=== PATIENT | female | born 1995 | race Caucasian/White ===

== ENCOUNTER → 2019-07-20 12:07 | Outpatient (CLI) | payer OTHER, MEDICAID, SELFPAY ==
--- NOTE | 2019-07-20 12:08 | DI.US.S_ITS ---
PROCEDURE: US OB >= 14 WEEKS FETUS INDICATIONS: 20 WEEK ANATOMY OUTSIDE/PRIOR DATING DATA: Last menstrual period (LMP): Unknown. LMP-based estimated date of delivery (ANGELIQUE): Unknown. First dating scan (date and location): 05/10/19. Estimated date of delivery (ANGELIQUE) from first dating scan: 12/02/18. TECHNIQUE: Real-time scanning was performed of the fetus, with image documentation and biometric measurements. Endovaginal scanning: Not performed COMPARISON: None. FINDINGS: General: A single living intrauterine gestation is present. Presentation: Vertex Placenta: Placental position is posterior, without previa. Amniotic fluid index: 14.3 cm, normal range is 5-24 cm. heart rate: 153 beats per minute. Maternal cervical canal: 3.3 cm long. Normal lower limit is 2.5 cm. biometrics: Biparietal diameter: 4.9 cm, 20 weeks, 6 days Head circumference: 18.1 cm, 20 weeks, 3 days Abdominal circumference: 14.6 cm, 19 weeks, 6 days Femur length: 3.4 cm, 20 weeks, 5 days Estimated gestational age from initial scan: 20 weeks 4 days. Composite gestational age from present scan: 20 weeks 3 days Estimated weight and percentile: 343 g, 29% Measurement variability for biometric dating: +/- 7 days from 14 weeks to 15 weeks 6 days gestation, +/- 10 days from 16 weeks to 21 weeks 6 days gestation, +/- 2 weeks from 22 weeks to 27 weeks 6 days gestation, +/- 3 weeks for 28 weeks gestation or later. weight reference: 4500 g or EFW >90/95% is considered macrosomia or large for gestational age. EFW <10% is small for gestational age. EFW 5% or less is considered intra-uterine growth restriction. Anatomic survey: Neuro: Ventricles are non-dilated at less than 10 mm. Cisterna magna is normal at 3-11 mm. Cerebellum is normal in size and morphology. Nuchal skin fold: Normal at less than 6 mm between 14-21 weeks gestational age. Face: Not well-seen due to position. Spine: No evidence for spina bifida. Heart: 4-chambered heart is present, with normal ventricular outflow tracts. Diaphragm: Diaphragm is intact. Stomach: Left-sided stomach is present. Kidneys: No hydronephrosis. Normal is less than 5 mm in 2nd trimester, less than 7 mm in 3rd trimester. Cord: 3-vessel cord has orthotopic insertion. Bladder: Normal in size. Extremities: All 4 extremities identified. IMPRESSION: 1. Single live intrauterine . Normal growth. Normal amount of amniotic fluid. 2. nose and lips are not well seen due to lie. Rest of anatomy is normal. Dictated by: Arvind Amato M.D. on 07/20/2019 at 15:19 Approved by: Arvind Amtao M.D. on 07/20/2019 at 15:25
== END ==
PROVIDERS: PCP Specialist; Visit Provider Specialist
DX: Z34.82 Encounter for supervision of other normal pregnancy, second trimester (principal); Z36.89 Encounter for other specified antenatal screening; Z3A.20 20 weeks gestation of pregnancy
CPT/HCPCS: 76811

== ENCOUNTER → 2019-07-30 10:28 | Outpatient (CLI) | payer OTHER, MEDICAID, SELFPAY ==
[2019-07-30 11:35] LABS: Add Manual Diff / Slide Review NO; Basophils Absolute Auto 0 /uL (0-100); Basophils Percent Auto 0.3 % (0-2); Eosinophils Absolute Auto 100 /uL (0-450); Eosinophils Percent Auto 1.6 % (2-4); Hematocrit 37.4 % (36-46); Hemoglobin 12.8 g/dL (12.0-16.0); Lymphocytes Absolute Auto 1200 /uL (1100-4500); Mean Corpuscular HGB Conc 34.3 % (30-36); Mean Corpuscular Hemoglobin 32.4 PG (26-34); Mean Corpuscular Volume 94.5 fL (80-100); Monocytes Absolute Auto 300 /uL (0-900); Monocytes Percent Auto 4.9 % (3-14); Neutrophils Absolute Auto 4800 /uL (1500-7000); Neutrophils Percent Auto 74.2 % (50-75); Platelet Count 272 X10^3/uL (150-400); Red Blood Cell Count 3.96 X10^6/uL (4.0-5.2); Red Cell Distribution Width 13.8 % (11.6-14.8); White Blood Cell Count 6.5 X10^3/uL (4.5-11.0)
[2019-07-30 11:39] LABS: Appearance Urine UA CLEAR; Bilirubin Urine UA NEGATIVE (NEGATIVE); Color Urine UA YELLOW; Glucose Urine UA NEGATIVE (Negative); Ketones Urine UA NEGATIVE (NEGATIVE); Leukocyte Esterase Urine UA NEGATIVE (NEGATIVE); Nitrite Urine UA NEGATIVE (Negative); Occult Blood Urine UA NEGATIVE (Negative); Protein Urine UA NEGATIVE (Negative); Specific Gravity Urine UA 1.015 (1.000-1.035); Urobilinogen Urine UA 0.2 E.U./dL (0.2)
[2019-07-30 12:44] LABS: Hepatitis B Surface Antigen NEGATIVE s/c (NEGATIVE); Rubella Antibody IgG 30.9 IU/mL (>15)
[2019-07-30 12:59] LABS: HIV 1 & 2 Ab/Ag 4th Gen Combo NEGATIVE (NEGATIVE); Hep C Virus Ab w/Reflex Quant NEGATIVE s/c (NEGATIVE)
[2019-07-31 17:44] LABS: RPR Screen Nonreactive (Nonreactive)
== END ==
PROVIDERS: PCP Specialist; Visit Provider Specialist
DX: Z34.82 Encounter for supervision of other normal pregnancy, second trimester (principal); Z3A.14 14 weeks gestation of pregnancy
CPT/HCPCS: 36415; 80055; 81003; 86787; 86803; 86850; 86900; 86901; 87389

== ENCOUNTER → 2019-11-14 10:15 | Outpatient (CLI) | payer OTHER, MEDICAID, SELFPAY ==
[2019-11-19 12:23] LABS: Strep Grp B PCR NEG for Grp B Strep
== END ==
PROVIDERS: PCP Specialist; Visit Provider Specialist
DX: Z34.03 Encounter for supervision of normal first pregnancy, third trimester (principal)
CPT/HCPCS: 87491; 87591; 87653

== ENCOUNTER 2019-11-23 10:34 | Outpatient (CLI) | payer OTHER, MEDICAID, SELFPAY ==
--- NOTE | 2019-11-23 11:09 | PM.OBTRLD ---
Visit Information Visit Information Date of evaluation: 11/23/19 Primary OB Provider: Sherri Huerta Reason for Evaluation: Yes rupture of membranes Vital Signs Vital Signs: Blood pressure 118/74, pulse 78, temperature 35.9? PFSH Medical History (Updated 11/23/19 @ 11:10 by Sherri Huerta MD) Closed arm fracture (Acute) Family History (Updated 04/30/19 @ 15:10 by Shandra Thomas RN) Mother Hypertension Social History marital status: unmarried,single Smoking Status: Never smoker Evaluation Evaluation Baseline heart rate: 145 Variability: Moderate (11-25) monitor accelerations: Present monitor decelerations: Variable Contraction Frequency (minutes): 0 Category of Tracing: I Non-invasive Membranes Rupture Test: negative Diagnosis, Plan/Disposition Final Diagnosis (1) Vaginal discharge during in third trimester: Current Visit: Yes Status: Acute Plan/Disposition Plan: Patient was concerned perhaps leaking amniotic fluid. AmniSure was negative. Patient reassured and will keep her normal OB appointment OB Disposition: home
== END 2019-11-23 11:15 | disposition home or self-care (01) ==
LOC: LABOR 11:22 → OB 11-26 15:08
PROVIDERS: PCP Specialist; Referring Provider Specialist; Visit Provider Specialist
DX: O26.893 Other specified pregnancy related conditions, third trimester (principal); N89.8 Other specified noninflammatory disorders of vagina; Z3A.37 37 weeks gestation of pregnancy
CPT/HCPCS: 59025; 84112; G0378; G0379

== ENCOUNTER 2019-12-12 15:05 | Outpatient (CLI) | payer OTHER, MEDICAID, SELFPAY ==
--- NOTE | 2019-12-12 15:38 | PM.OBTRLD ---
Visit Information Visit Information Date of evaluation: 12/12/19 Primary OB Provider: Sherri Huerta Reason for Evaluation: Yes non-stress test non-stress test reason: other (Postdates) [facility] [place] Medical History (Updated 12/12/19 @ 14:53 by Sherri Huerta MD) Closed arm fracture (Acute) Family History (Updated 04/30/19 @ 15:10 by Shandra Thomas RN) Mother Hypertension Social History marital status: unmarried,single Smoking Status: Never smoker Evaluation Evaluation Baseline heart rate: 140 Variability: Moderate (11-25) monitor accelerations: Present monitor decelerations: Absent Contraction Frequency (minutes): 0 Category of Tracing: I Diagnosis, Plan/Disposition Final Diagnosis (1) Postmaturity , 40-42 weeks gestation: Status: Acute Plan/Disposition Plan: Reactive nonstress test follow-up in 5 days OB Disposition: home
== END 2019-12-12 15:46 | disposition home or self-care (01) ==
LOC: LABOR 15:08 → OB 12-18 07:37
PROVIDERS: PCP Specialist; Referring Provider Specialist; Visit Provider Specialist
DX: O48.0 Post-term pregnancy (principal); Z3A.40 40 weeks gestation of pregnancy
CPT/HCPCS: 59025; G0378; G0379

== ENCOUNTER 2019-12-15 06:38 | Inpatient (IN) | payer OTHER, MEDICAID, SELFPAY ==
--- NOTE | 2019-12-15 07:36 | P.HPOB_ITS ---
OB HPI Date/Time Date of admission: 12/15/19 Date Patient Seen: 12/15/19 Time Patient Seen: 07:36 History of Present Condition Chief complaint: evaluation of labor : 4 Para: 2 Estimated Date of Delivery: 12/08/19 Estimated Gestational Age (weeks): 41 Narrative: Yamile Barrios is a 24 year old female admitted in active labor History of Present care: good care, initiated at week # (8), number of visits (15) and pounds weight gain (28) Dating criteria: LMP confirmed by 1st trimester US Ultrasounds: normal mid trimester US Obstetrical complications: none Medical complications: none Preadmission Labs Blood type: A (+) positive -: Antibody screen: negative, GBS status: negative, HBsAG: negative, HIV: negative and RPR/VDLR: negative -: Rubella: immune and Varicella: immune HCAB: negative 1 hr GTT: 89 Evaluation Evaluation Variability: Moderate (11-25) monitor accelerations: Present monitor decelerations: Absent Contraction Frequency (minutes): 6 Uterine Contraction Intensity: Mild Category of Tracing: I Cervical dilation (cm): 6 Cervical effacement (%): 90 station: -[facility] Medical History (Updated 12/12/19 @ 14:53 by Sherri Huerta MD) Closed arm fracture (Acute) Family History (Updated 04/30/19 @ 15:10 by Shandra Thomas RN) Mother Hypertension Social History marital status: unmarried,single Smoking Status: Never smoker Meds Home Medications and Allergies Home Medications Medication Instructions Recorded Confirmed Type prenat.vits,monie,tcf-hbnk-qdjkn 1 tab PO DAILY 04/30/19 12/05/19 History Allergies Allergy/AdvReac Type Severity Reaction Status Date / Time latex [LATEX] Allergy Intermediate Verified 12/05/19 08:23 Review of Systems Review of Systems Narrative: Patient denies headaches, scotomata, epigastric pain. No leakage of fluid. She began noticing contractions approximately 3-1/2 hours ago. Good movement. ROS: Yes All systems reviewed with the patient and are negative except as otherwise documented Exam Narrative Exam Narrative: HEENT exam within normal limits. Lungs are clear to auscultation percussion. Heart is regular rate rhythm no S3-S4 or murmurs. Abdomen is gravid. Fetus is vertex. Extremities without edema nontender. Assessment and Plan Assessment and Plan Assessment and Plan narrative: 41 week gestation in active labor. Anticipate vaginal delivery
[2019-12-15 08:04] LABS: Add Manual Diff / Slide Review NO; Basophils Absolute Auto 0 /uL (0-100); Basophils Percent Auto 0.4 % (0-2); Eosinophils Absolute Auto 100 /uL (0-450); Eosinophils Percent Auto 0.8 % (2-4); Hematocrit 39.7 % (36-46); Hemoglobin 13.7 g/dL (12.0-16.0); Lymphocytes Absolute Auto 1500 /uL (1100-4500); Lymphocytes Percent Auto 19.8 % (25-40); Mean Corpuscular HGB Conc 34.5 % (30-36); Mean Corpuscular Hemoglobin 33.6 PG (26-34); Mean Corpuscular Volume 97.6 fL (80-100); Monocytes Absolute Auto 400 /uL (0-900); Monocytes Percent Auto 5.7 % (3-14); Neutrophils Absolute Auto 5600 /uL (1500-7000); Neutrophils Percent Auto 73.3 % (50-75); Platelet Count 197 X10^3/uL (150-400); Red Blood Cell Count 4.06 X10^6/uL (4.0-5.2); Red Cell Distribution Width 13.7 % (11.6-14.8); White Blood Cell Count 7.7 X10^3/uL (4.5-11.0)
[2019-12-15 08:46] VITALS: BP 144/78
[2019-12-15 08:58] LABS: COVID19 -Nasal RAPID Negative (Negative)
[2019-12-15] MEDS: OXYTOCIN 10 UNIT/ML VIAL IM (09:15)
--- NOTE | 2019-12-15 09:32 | P.PCNOB_ITS ---
Labor & Delivery Delivery date: 12/15/19 Intrapartal events: None Induction method: none Delivery monitor: external FHT and external uterine Route of delivery: L&D Laceration Description: Perineal - 2nd Degree Delivery repair: chromic (3 0) Estimated blood loss (mL): 300 Anesthesia type: Local (10 cc of 1% lidocaine) Narrative: Patient arrived on Labor and delivery in active labor. heart tones category 1 throughout labor. Patient had a spontaneous vaginal delivery over an intact perineum. The male infant was placed on maternal abdomen. After the cord stopped pulsating the cord was clamped, cut, and cord bloods obtained. The placenta delivered spontaneously, intact, with 3 vessels. There were no cer vical or vaginal tears. A second-degree perineal tear was repaired with 3 0 chromic suture after injecting with approximately 10 cc of 1% lidocaine. Both infant mother doing well. [place] Baby 1: Infant gender: Male Presentation: vertex position: Right Occiput Anterior Placenta delivery description: Spontaneous cord vessel description: 3 Vessels score (1 min): 8 score (5 min): 9 Plan for aftercare: Routine post vaginal delivery care
--- NOTE | 2019-12-15 14:36 | PM.OBDS.1 ---
Discharge Providers Provider Date of admission: 12/15/19 06:38 Discharge Date: 12/15/19 Primary care physician: Sherri Huerta MD Consults: 12/16/19 09:30 Consult to Prepress Technician Routine Comment: Discharge provider: Sherir Huerta MD Summary Hospital Course Date Patient Seen: 12/15/19 Time Patient Seen: 14:37 Procedures: Spontaneous vaginal delivery, repair of second-degree perineal tear Hospital Course: Patient arrived on Labor and delivery in active labor. She progressed quickly and had a spontaneous vaginal delivery a viable male infant weighing 9 lb 5 oz. She had repair of a second-degree perineal tear. Although encouraged to stay longer patient requested early discharge. Peripartum Data Infant Delivery Method: Natural Vaginal Laceration description: Perineal - 2nd Degree Procedures: Spontaneous vaginal delivery, repair of second-degree perineal tear complications: none [place] 1: Gender: Male Disposition of : home Discharge Diagnosis (1) Vaginal delivery: Status: Acute Status at Discharge Cognitive/behavioral status at discharge: oriented Functional status at discharge: independent ambulation Overall status at discharge: patient is progressing back to baseline Time Spent with Patient Time attestation: Total time spent providing and/or coordinating discharge services: Time spent: Less than 30 minutes Objective Labs Result Diagrams: 12/15/19 07:30 Labs: Laboratory Results - last 24 hr 12/15/19 12/15/19 12/15/19 07:30 07:30 07:45 WBC 7.7 RBC 4.06 Hgb 13.7 Hct 39.7 MCV 97.6 MCH 33.6 MCHC 34.5 RDW 13.7 Plt Count 197 Neut % (Auto) 73.3 Lymph % (Auto) 19.8 L [place] % (Auto) 5.7 Eos % (Auto) 0.8 L Baso % (Auto) 0.4 Neut # (Auto) 5600 Lymph # (Auto) 1500 [place] # (Auto) 400 Eos # (Auto) 100 Baso # (Auto) 0 COVID-19 PCR Negative Blood Type A Positive Antibody Screen Negative Exam Vital Signs (past 8 hours): Blood pressure 117/68, pulse of 88, temperature 97.8? - 12/15/19 08:46 Blood Pressure 144/78 H Narrative Exam Narrative: Abdomen is soft, nontender. Uterus is firm, at U, nontender. Mild lochia. Repair intact. Extremities without edema and nontender. Patient's blood type is A positive, she is rubella immune, she refuses the Tdap Discharge Plan Discharge Plan Patient Disposition: Home Discharge orders & Medications Prescriptions: Continued prenat.vits,monie,art-yjwf-tndzg Tablet 1 tab PO DAILY RF: 0 Follow up/Referrals: Sherri Huerta MD [Primary Care Provider] - 1 Month Diet/Activity/Treatments Diet: Regular Activity: Nothing in vagina for 4 weeks Skin/Wound/Dressing Care Report to your healthcare provider any signs of infection, such as:: chills, fever and increased pain Discharge Data Primary Care Provider: Sherri Huerta Attending Provider: Sherri Huerta Admit Date/Time: 12/15/19 06:38
[2019-12-15 15:32] VITALS: BP 117/68; PULSE 88; RESP 18; TEMP 36.6
== END 2019-12-15 17:00 | disposition home or self-care (01) | DRG 560 ==
PROVIDERS: Admitting Provider Specialist; PCP Specialist; Referring Provider Specialist; Visit Provider Specialist
DX: O70.1 Second degree perineal laceration during delivery (principal); Z3A.41 41 weeks gestation of pregnancy; Z37.0 Single live birth
CPT/HCPCS: 36415; 59050; 59409; 85025; 86850; 86900; 86901; 87635; G0378; G0379; J2590

== ENCOUNTER → 2020-09-11 12:19 | Outpatient (CLI) | payer OTHER, MEDICAID, SELFPAY ==
[2020-09-11 13:14] LABS: Add Manual Diff / Slide Review NO; Basophils Absolute Auto 0 /uL (0-100); Basophils Percent Auto 0.6 % (0-2); Eosinophils Absolute Auto 100 /uL (0-450); Eosinophils Percent Auto 1.7 % (2-4); Hematocrit 40.9 % (36-46); Hemoglobin 13.4 g/dL (12.0-16.0); Lymphocytes Absolute Auto 1500 /uL (1100-4500); Lymphocytes Percent Auto 24.8 % (25-40); Mean Corpuscular HGB Conc 32.8 % (30-36); Mean Corpuscular Hemoglobin 31.3 PG (26-34); Mean Corpuscular Volume 95.3 fL (80-100); Monocytes Absolute Auto 400 /uL (0-900); Monocytes Percent Auto 6.3 % (3-14); Neutrophils Absolute Auto 4100 /uL (1500-7000); Neutrophils Percent Auto 66.6 % (50-75); Platelet Count 325 X10^3/uL (150-400); Red Blood Cell Count 4.29 X10^6/uL (4.0-5.2); Red Cell Distribution Width 13.1 % (11.6-14.8); White Blood Cell Count 6.2 X10^3/uL (4.5-11.0)
[2020-09-11 13:50] LABS: TSH w/ Reflex to FT4 0.69 uIU/mL (0.47-4.68)
== END ==
PROVIDERS: PCP Family Medicine; Referring Provider Family Medicine; Visit Provider Family Medicine
DX: R00.2 Palpitations (principal)
CPT/HCPCS: 36415; 84443; 85025

== ENCOUNTER → 2020-09-23 16:14 | Outpatient (CLI) | payer OTHER, MEDICAID, SELFPAY ==
--- NOTE | 2020-09-23 16:17 | DI.CT.S_ITS ---
PROCEDURE: CT INTERNAL AUDITORY CANALS BI INDICATIONS: Bilateral sinus pain/congestion/ear fullness vertigo COMPARISON: [facility], CT, CT SINUS SCREEN WO CON, 09/23/2020, 16:18. TECHNIQUE: Noncontrast 0.6 mm thick direct axial and coronal sections acquired through each temporal bone separately. FINDINGS: Image quality: Excellent. RIGHT: External auditory canal: Canal has a normal appearance. Middle ear: The middle ear structures, including the ossicles and tympanic membrane, appear normal. No abnormal fluid or soft tissue density. Inner ear: Inner ear is normally formed and appears unremarkable. Facial nerve appears normal throughout is course. Mastoids: Mastoid air cells are clear. LEFT: External auditory canal: Canal has a normal appearance. Middle ear: The middle ear structures, including the ossicles and tympanic membrane, appear normal. No abnormal fluid or soft tissue density. Inner ear: Inner ear is normally formed and appears unremarkable. Facial nerve appears normal throughout its course. Mastoids: Mastoid air cells are clear. MISCELLANEOUS: Visualized surrounding bones appear unremarkable. Visualized intracranial structures, including the cerebellopontine angle cisterns, appear normal. IMPRESSION: Unremarkable exam. Dictated by: Lizzeth Steiner M.D. on 09/23/2020 at 16:43 Approved by: Lizzeth Steiner M.D. on 09/23/2020 at 16:44
--- NOTE | 2020-09-23 16:20 | DI.CT.S_ITS ---
PROCEDURE: CT SINUS SCREEN WO CON INDICATIONS: bilateral sinus pain/congestion/ear fullnesss, vertigo TECHNIQUE: Noncontrast 3.0 mm axial images acquired from the frontal sinuses to the mid-sella, with coronal and sagittal reformats. For radiation dose reduction, the following was used: automated exposure control, adjustment of mA and/or kV according to patient size. COMPARISON: [facility], CT, CT INTERNAL AUDITORY CANALS , 09/23/2020, 16:18. FINDINGS: Image quality: Excellent. Sinuses: There is trace scattered ethmoid and frontal sinus mucosal thickening. No fluid levels. No mucous retention cyst versus polyps. Ostiomeatal Complexes: Ostiomeatal complexes are patent. No Charmaine cells. Miscellaneous: Visualized intra-orbital contents are normal. There is leftward nasal septal deviation. No corey bullosa. There is hypertrophy of the inferior turbinates compared to the middle turbinates of uncertain clinical significance. No paradoxical turbinates. IMPRESSION: 1. Minimal scattered ethmoid and frontal sinus mucosal thickening. Ostiomeatal complexes are patent. Dictated by: Lizzeth Steiner M.D. on 09/23/2020 at 16:45 Approved by: Lizzeth Steiner M.D. on 09/23/2020 at 16:47
== END ==
PROVIDERS: PCP Family Medicine; Referring Provider Family Medicine; Visit Provider Family Medicine
DX: R42 Dizziness and giddiness; H93.13 Tinnitus, bilateral; J01.90 Acute sinusitis, unspecified
CPT/HCPCS: 70480; 70486

== ENCOUNTER → 2022-04-12 11:12 | Outpatient (CLI) | payer OTHER, MEDICAID, SELFPAY ==
--- NOTE | 2022-04-12 11:13 | DI.US.S_ITS ---
PROCEDURE: US OB <= 14 WEEKS FETUS INDICATIONS: DATING OUTSIDE/PRIOR DATING DATA: Last menstrual period (LMP): 02/14/22. LMP-based estimated date of delivery (ANGELIQUE): 11/21/22. First dating scan (date and location): Current study. Estimated date of delivery (ANGELIQUE) from first dating scan: 11/22/22. TECHNIQUE: Real-time scanning was performed of the fetus and maternal pelvic organs, with image documentation. Endovaginal scanning was also performed to better visualize the fetus and maternal ovaries. COMPARISON: [facility], US, US OB <= 14 WEEKS FETUS, 07/09/2019, 10:40. FINDINGS: Embryo: An intrauterine is present including a single pole with an average crown-rump length of 1.59 cm corresponding to a eight week 0 day plus or minus five days gestation. There is detectable cardiac activity in the fetus at a rate of 165 beats per minute. A normal yolk sac is present. Maternal organs: Left ovarian corpus luteum. The right ovary appears normal. Trace free pelvic fluid. The cervix is closed and has a normal appearance. Uterine myometrium is normal. IMPRESSION: 1. Single living intrauterine with a sonographic ANGELIQUE of 02/22/23, in good agreement with the clinical ANGELIQUE. 2. Left ovarian corpus luteum. We strive to produce accurate, complete, and clear reports of imaging services. To assist us in improving patient care, this report was composed using standard report templates and voice recognition software. Therefore, it may contain abnormal punctuation, insertions and/or omissions. Occasional wrong-word or sound-alike substitutions may occur. Though we review the report and make efforts to correct it, we do recommend that the report be read carefully in proper context to recognize any text inaccuracies. Dictated by: Ana Laura Cano M.D. on 04/12/2022 at 16:15 Approved by: Ana Laura Cano M.D. on 04/12/2022 at 16:18
== END ==
PROVIDERS: PCP Family Medicine; Referring Provider Obstetrics & Gynecology; Visit Provider Obstetrics & Gynecology
DX: O34.81 Maternal care for other abnormalities of pelvic organs, first trimester (principal); N83.12 Corpus luteum cyst of left ovary; Z3A.08 8 weeks gestation of pregnancy
CPT/HCPCS: 76801; 76817

== ENCOUNTER → 2022-05-10 11:05 | Outpatient (CLI) | payer OTHER, MEDICAID, SELFPAY ==
[2022-05-10 16:59] LABS: Urine N gonorrhoeae NOT DETECTED
[2022-05-10 17:51] LABS: Urine Chlamydia NOT DETECTED
== END ==
PROVIDERS: PCP Family Medicine; Visit Provider Obstetrics & Gynecology
DX: Z34.81 Encounter for supervision of other normal pregnancy, first trimester (principal); Z11.3 Encounter for screening for infections with a predominantly sexual mode of transmission; Z3A.13 13 weeks gestation of pregnancy
CPT/HCPCS: 87491; 87591

== ENCOUNTER → 2022-05-18 08:55 | Outpatient (CLI) | payer OTHER, MEDICAID, SELFPAY ==
[2022-05-18 10:16] LABS: Add Manual Diff / Slide Review NO; Basophils Absolute Auto 0 /uL (0-100); Basophils Percent Auto 0.3 % (0-2); Eosinophils Absolute Auto 100 /uL (0-450); Eosinophils Percent Auto 1.6 % (2-4); Hematocrit 37.1 % (36-46); Hemoglobin 12.6 g/dL (12.0-16.0); Lymphocytes Absolute Auto 900 /uL (1100-4500); Lymphocytes Percent Auto 15.6 % (25-40); Mean Corpuscular HGB Conc 33.9 % (30-36); Mean Corpuscular Volume 91.6 fL (80-100); Monocytes Absolute Auto 300 /uL (0-900); Monocytes Percent Auto 5.7 % (3-14); Neutrophils Absolute Auto 4400 /uL (1500-7000); Neutrophils Percent Auto 76.8 % (50-75); Platelet Count 277 X10^3/uL (150-400); Red Blood Cell Count 4.06 X10^6/uL (4.0-5.2); Red Cell Distribution Width 13.5 % (11.6-14.8); White Blood Cell Count 5.8 X10^3/uL (4.5-11.0)
[2022-05-18 11:15] LABS: Hepatitis B Surface Antigen NEGATIVE s/c (NEGATIVE); Rubella Antibody IgG 28.2 IU/mL (>15)
[2022-05-18 11:29] LABS: HIV 1 & 2 Ab/Ag 4th Gen Combo NEGATIVE (NEGATIVE); Hep C Virus Ab w/Reflex Quant NEGATIVE s/c (NEGATIVE)
[2022-05-19 05:34] LABS: RPR Screen Non Reactive (Non Reactive)
[2022-05-19 09:09] LABS: Varicella IgG Antibody 1604 index (Immune >165)
== END ==
PROVIDERS: PCP Family Medicine; Referring Provider Obstetrics & Gynecology; Visit Provider Obstetrics & Gynecology
DX: Z34.81 Encounter for supervision of other normal pregnancy, first trimester (principal)
CPT/HCPCS: 36415; 80055; 86787; 86803; 86850; 86900; 86901; 87389

== ENCOUNTER → 2022-06-14 09:12 | Outpatient (CLI) | payer OTHER, MEDICAID, SELFPAY ==
--- NOTE | 2022-06-14 09:13 | DI.US.S_ITS ---
LIMITED ULTRASOUND OF RIGHT BREAST: 06/14/2022 CLINICAL: Palpable right breast lump. No prior exams were available for comparison. Real-time ultrasound of the right breast 4 o'clock region was performed. Lainez scale images of the real-time examination were reviewed. No significant abnormalities were seen sonographically in the right breast. IMPRESSION: NEGATIVE There is no sonographic evidence of malignancy in the region of the palpable abnormality. Exam findings were conveyed to the patient. Patient is advised to monitor for significant change. Clinical follow-up as needed. This exam was interpreted at Station ID: [id number]. Electronically Signed By: Myron Billingsley M.D. slc/:06/14/2022 09:43:14 letter sent: Normal Exam Ultrasound BI-RADS: 1 Negative
== END ==
PROVIDERS: PCP Family Medicine; Referring Provider Obstetrics & Gynecology; Visit Provider Obstetrics & Gynecology
DX: N63.10 Unspecified lump in the right breast, unspecified quadrant (principal)
CPT/HCPCS: 76642

== ENCOUNTER → 2022-07-14 15:21 | Outpatient (CLI) | payer OTHER, MEDICAID, SELFPAY ==
--- NOTE | 2022-07-14 15:24 | DI.US.S_ITS ---
PROCEDURE: US OB >= 14 WEEKS FETUS INDICATIONS: 20 week anatomy scan OUTSIDE/PRIOR DATING DATA: Last menstrual period (LMP): 02/14/2022. LMP-based estimated date of delivery (ANGELIQUE): 11/21/2022. First dating scan (date and location): 04/12/2022. Estimated date of delivery (ANGELIQUE) from first dating scan: 11/22/2022. TECHNIQUE: Real-time scanning was performed of the fetus, with image documentation and biometric measurements. COMPARISON: [facility], US, OB >= 14 WEEKS FETUS, 12/12/2019, 14:47. FINDINGS: General: A single living intrauterine gestation is present. Presentation: Vertex. Placenta: Placental position is posterior , without previa. Amniotic fluid index: 15.3 cm, normal range is 5-24 cm. Single deepest vertical pocket is 4.2 cm. heart rate: 147 beats per minute. Maternal cervical canal: 3.5 cm long. Normal lower limit is 2.5 cm. biometrics: Biparietal diameter: 5.2 cm, 21 week 6 day Head circumference: 19.1 cm, 21 week 2 day Abdominal circumference: 16.0 cm, 21 week 0 day Femur length: 3.6 cm, 21 week 3 day Clinically estimated gestational age: 21 week 3 day Composite gestational age from present scan: 21 week 3 day Estimated weight and percentile: 412 g, 36th percentile Anatomic survey: Neuro: Ventricles are non-dilated at less than 10 mm. Cisterna magna is normal at 3-11 mm. Cerebellum is normal in size and morphology. Nuchal skin fold: Normal at less than 6 mm between 14-21 weeks gestational age. Face: Nose and lips, facial profile are normal. Spine: No evidence for spina bifida. Heart: 4-chambered heart is present, with normal ventricular outflow tracts. Diaphragm: Diaphragm is intact. Stomach: Left-sided stomach is present. Kidneys: No hydronephrosis. Normal is less than 5 mm in 2nd trimester, less than 7 mm in 3rd trimester. Cord: 3-vessel cord has orthotopic insertion. Bladder: Normal in size. Extremities: All 4 extremities identified. IMPRESSION: Single live intrauterine consistent with 21 week 3 day gestation Approved by: Jero Pride M.D. on 07/14/2022 at 18:20
== END ==
PROVIDERS: PCP Family Medicine; Referring Provider Obstetrics & Gynecology; Visit Provider Obstetrics & Gynecology
DX: Z34.82 Encounter for supervision of other normal pregnancy, second trimester (principal); Z3A.21 21 weeks gestation of pregnancy
CPT/HCPCS: 76811; G0379

== ENCOUNTER → 2022-08-10 11:15 | Outpatient (CLI) | payer OTHER, MEDICAID, SELFPAY | PROVIDERS: PCP Family Medicine; Visit Provider Obstetrics & Gynecology | DX: Z34.82 Encounter for supervision of other normal pregnancy, second trimester (principal); Z3A.26 26 weeks gestation of pregnancy | CPT/HCPCS: 87086 ==

== ENCOUNTER → 2022-08-21 10:11 | Outpatient (CLI) | payer OTHER, MEDICAID, SELFPAY ==
[2022-08-21 12:22] LABS: Hematocrit 36.3 % (36-46); Hemoglobin 12.1 g/dL (12.0-16.0)
[2022-08-21 12:43] LABS: GTT (PREG) 1 Hour PP 50gm Dose 87 mg/dL (76-139)
== END ==
PROVIDERS: PCP Family Medicine; Referring Provider Obstetrics & Gynecology; Visit Provider Obstetrics & Gynecology
DX: Z34.82 Encounter for supervision of other normal pregnancy, second trimester (principal); Z3A.26 26 weeks gestation of pregnancy
CPT/HCPCS: 82950; 85014; 85018

== ENCOUNTER → 2022-10-27 16:34 | Outpatient (CLI) | payer OTHER, MEDICAID, SELFPAY ==
[2022-10-28 17:32] LABS: Strep Grp B PCR NEG for Grp B Strep
== END ==
PROVIDERS: PCP Family Medicine; Visit Provider Obstetrics & Gynecology
DX: Z34.83 Encounter for supervision of other normal pregnancy, third trimester (principal); Z3A.36 36 weeks gestation of pregnancy
CPT/HCPCS: 87653

== ENCOUNTER 2022-11-01 05:55 | Observation (INO) | payer OTHER, MEDICAID, SELFPAY ==
[2022-11-01 06:49] VITALS: BP 124/70
[2022-11-01] MEDS: ONDANSETRON 4 MG/2 ML INJ IV (07:06)
[2022-11-01] MEDS: LACTATED RINGERS 1,000 ML 1000 ML IV (07:07)
== END 2022-11-01 08:30 | disposition home or self-care (01) ==
PROVIDERS: Admitting Provider Obstetrics & Gynecology; PCP Family Medicine; Referring Provider Obstetrics & Gynecology; Visit Provider Obstetrics & Gynecology
DX: O42.92 Full-term premature rupture of membranes, unspecified as to length of time between rupture and onset of labor (principal); Z3A.37 37 weeks gestation of pregnancy
CPT/HCPCS: 59025; 59050; 96360; G0378; G0379; J2405

== ENCOUNTER 2022-11-16 06:10 | Inpatient (IN) | payer OTHER, MEDICAID, SELFPAY ==
--- NOTE | 2022-11-16 08:28 | PM.OBHP.1 ---
OB HPI Date/Time Date of admission: 11/16/22 Date Patient Seen: 11/16/22 Time Patient Seen: 08:28 History of Present Condition Chief complaint: IUP, 39+2 wks EGA, Hx rapid labors, GBS negative : 5 Para: 3 Estimated Date of Delivery: 11/21/22 Estimated Gestational Age (weeks): 39+2 Narrative: Yamile Barrios is a 27 year old with a history of rapid labors admitted for induction now at 39+ 2 weeks gestational age. course has been uneventful with solid dating and appropriate milestones throughout. Cell free DNA and AFP/quad screen testing declined. GBS is negative. Indications Indication for induction OB: history of rapid labor History of Present care: good care Dating criteria: LMP confirmed by 1st trimester US Ultrasounds: normal 1st trimester US and normal mid trimester US Obstetrical complications: none Medical complications: none Preadmission Labs Blood type: A (+) positive -: Antibody screen: negative, GBS status: negative, HBsAG: negative, HIV: negative and RPR/VDLR: negative -: Chlamydia screen: not detected and Gonorrhea screen: not detected -: Rubella: immune and Varicella: immune HCT: 30.5 HCAB: negative PAP: Normal Evaluation Evaluation Baseline heart rate: 145 Variability: Moderate (11-25) monitor accelerations: Present Monitor Decelerations: Absent Uterine Contraction Intensity: Mild Category of Tracing: Reactive Dilation (cm): 2 Effacement (%): 75 Dilation: 1-2 cm Effacement: 60-70% station: -2 Position of cervix: mid Consistency: soft [place] score: 7 PFSH Medical History (Updated 11/10/22 @ 13:05 by Arben Martinez MD) Closed arm fracture Palpitations Sinusitis Tinnitus Tinnitus, left ear Vaginal delivery (~12/15/19) Vertigo Surgical History (Updated 04/06/22 @ 11:00 by Yane López RN) [place] teeth extracted Family History (Updated 04/06/22 @ 11:01 by Yane López RN) Mother Hypertension Grandmother Congestive heart failure Social History marital status: unmarried,living together number of children: 3 household members: significant other and children lives independently: Yes housing: house pets and animals: Yes (1 dog, aware of toxo) education level: college (Associate's degree ) occupational status: unemployed current occupational exposures/hazards: No special jake needs: No travel history: over 6 months ago seatbelt use: always water heater temp set < 120 deg: Yes working smoke detector in home: Yes fire extinguisher in home: Yes carbon monox detector in home: Yes firearms in home: No do you feel safe at home: Yes Smoking Status: Never smoker second hand exposure: No alcohol intake: never substance use type: does not use during the past year weight has: remained stable well-balanced diet: daily or most days daily servings fruits/ve-4 caffeine: Yes Type(s) of exercise: regular exercise and yoga frequency: 3-4 times per week Meds Home Medications and Allergies Home Medications Medication Instructions Recorded Confirmed Type prenat.vits,monie,ioa-ekgq-mwxbv 1 tab PO DAILY 04/30/19 11/16/22 History sertraline 50 mg tablet (Zoloft) 50 mg PO DAILY #30 tabs 09/29/22 11/16/22 Rx Double Electric Breast Pump #1 ea 10/13/22 11/16/22 Rx Allergies Allergy/AdvReac Type Severity Reaction Status Date / Time latex [LATEX] Allergy Intermediate Rash Verified 11/10/22 11:55 amoxicillin Allergy rash Verified 11/10/22 11:55 Review of Systems Review of Systems Narrative: Problem-specific ROS positives included in HPI OB Exam Vital signs Blood Pressure: 126/69 Pulse Rate: 66 Respiratory Rate: 14 Temperature: 97.0 F HENMT Head: normal to inspection, normocephalic and atraumatic Eyes General: appearance normal, both eyes and all related structures Resp Effort & Inspection: normal respiratory effort and able to speak in complete sentences Auscultation: clear to auscultation bilaterally Cardio Rate: regular rate Rhythm: regular rhythm Heart Sounds: S1 normal, S2 normal and no murmurs Extremities Lower extremity: Yes normal to inspection GI Inspection: normal to inspection Palpation: Yes soft and Yes no hepatosplenomegaly Uterus Location (Fundal Height): 36 Presentation: vertex Estimated Weight (lbs): 7 Objective Labs 11/16/22 07:00 Assessment and Plan Assessment and Plan Assessment and Plan narrative: ASSESSMENT 1. Intrauterine , 39+ 3 weeks gestational age 2. History of rapid labors PLAN 1. Admit for induction 2. See admission orders
[2022-11-16 08:38] LABS: Add Manual Diff / Slide Review NO; Basophils Absolute Auto 0 /uL (0-100); Basophils Percent Auto 0.4 % (0-2); Eosinophils Absolute Auto 100 /uL (0-450); Eosinophils Percent Auto 1.4 % (2-4); Hematocrit 30.5 % (36-46); Hemoglobin 10.3 g/dL (12.0-16.0); Lymphocytes Absolute Auto 1400 /uL (1100-4500); Mean Corpuscular HGB Conc 33.7 % (30-36); Mean Corpuscular Hemoglobin 31.2 PG (26-34); Mean Corpuscular Volume 92.7 fL (80-100); Monocytes Absolute Auto 500 /uL (0-900); Monocytes Percent Auto 9.1 % (3-14); Neutrophils Absolute Auto 3300 /uL (1500-7000); Neutrophils Percent Auto 63.1 % (50-75); Platelet Count 232 X10^3/uL (150-400); Red Blood Cell Count 3.29 X10^6/uL (4.0-5.2); Red Cell Distribution Width 13.6 % (11.6-14.8); White Blood Cell Count 5.2 X10^3/uL (4.5-11.0)
[2022-11-16] MEDS: OXYTOCIN PREMIX 30 UNIT/500 ML PLAST..BAG IV (09:18)
[2022-11-16 17:46] VITALS: BP 126/69; PULSE 66; RESP 14; TEMP 36.1
--- NOTE | 2022-11-16 18:28 | P.PCNOB_ITS ---
Labor & Delivery Delivery date: 11/16/22 Intrapartal Events: None Cervical ripening method: none Induction method: per pitocin protocol Delivery monitor: external FHT and external uterine Route of delivery: Episiotomy description: None L&D Laceration Description: Perineal - 2nd Degree Delivery repair: chromic Estimated blood loss (mL): 150 Anesthesia Type: Local Complications: None Narrative: Following a 2nd stage lasting less than 10 minutes, the patient delivered spontaneously over an intact perineum a viable female in the right occiput posterior position. No shoulder dystocia or cord entanglement was en countered. Skin to skin contact was initiated immediately and delayed cord clamping performed. Once the umbilical cord had stopped pulsating, the cord itself was doubly clamped and cut. A cord blood sample was then obtained for routine studies. The placenta was then delivered with gentle cord traction and suprapubic countertraction. Placenta was found to be intact with a central umbilical cord insertion and the umbilical cord having 3 vessels. Intravenous Pitocin was administered excellent control of post delivery bleeding. Inspection of the perineum showed there to be a second-degree perineal laceration in the midline which was repaired under local anesthesia with 2-0 chromic catgut suture. Mother and baby both tolerated delivery process well and in good condition at the end of the procedure. Reynolds Baby 1: Infant gender: Female Position: Right Occiput Posterior Placenta delivery description: Spontaneous Cord Vessel Description: 3 Vessels score (1 min): 8 score (5 min): 9 weight: 7 lb 6.697 oz Plan for aftercare: Routine care
[2022-11-17 06:37] LABS: Add Manual Diff / Slide Review NO; Basophils Absolute Auto 0 /uL (0-100); Basophils Percent Auto 0.4 % (0-2); Eosinophils Absolute Auto 100 /uL (0-450); Eosinophils Percent Auto 0.7 % (2-4); Hematocrit 31.5 % (36-46); Hemoglobin 10.7 g/dL (12.0-16.0); Lymphocytes Absolute Auto 1100 /uL (1100-4500); Lymphocytes Percent Auto 14.4 % (25-40); Mean Corpuscular HGB Conc 33.9 % (30-36); Mean Corpuscular Hemoglobin 31.2 PG (26-34); Monocytes Absolute Auto 600 /uL (0-900); Monocytes Percent Auto 7.2 % (3-14); Neutrophils Absolute Auto 6000 /uL (1500-7000); Neutrophils Percent Auto 77.3 % (50-75); Platelet Count 215 X10^3/uL (150-400); Red Blood Cell Count 3.42 X10^6/uL (4.0-5.2); Red Cell Distribution Width 13.5 % (11.6-14.8); White Blood Cell Count 7.7 X10^3/uL (4.5-11.0)
[2022-11-17] MEDS: DOCUSATE 100 MG CAPSULE PO (09:16)
--- NOTE | 2022-11-17 13:00 | PM.OBDS.1 ---
Discharge Providers Provider Date of admission: 11/16/22 06:10 Discharge Date: 11/17/22 Primary care physician: Sushil Sutherland MD Consults: 11/16/22 08:23 Consult to Anesthesiology Urgent Comment: Consulting Provider: Arben Martinez Reason for consultation: Epidural Has provider been notified: No 11/17/22 18:33 Consult to Technology Assistant Routine Comment: Discharge provider: Arben Martinez MD Summary Hospital Course Date Patient Seen: 11/17/22 Time Patient Seen: 13:00 Diagnoses: Intrauterine gestation, Bhagat, delivered by spontaneous vaginal History of rapid labors Hospital Course: Yamile was admitted on the morning 11/16/2022 for induction due to her history of rapid labors. Pitocin augmentation was initiated and the patient progressed nicely delivering on the evening of 11/16/2022 a viable female infant with Apgars of 9 and 9 and a weight of 3365 g (7 lb 6.7 oz). Following delivery both mother and baby have done extremely well with the mother experiencing prompt return of bowel and bladder function, she is ambulating independently, tolerating a regular diet, and her pain is well controlled with oral pain medications. She will be discharged at this time to home after counseling regarding precautionary symptoms, limitations of activity, medications, and plans for follow-up which will be in 6 weeks. Medications at discharge will include resumption of all preadmission medications including her vitamins and she will use [id number] Tylenol and/or ibuprofen for pain relief after discharge. Between now and the patient's 6 week postop visit, arrangements will be made for performance of a laparoscopic bilateral salpingectomy for elective sterilization which the patient has requested. Peripartum Data Infant Delivery Method: Natural Vaginal Laceration Description: Perineal - 2nd Degree Episiotomy description: None complications: none Mahomet 1: Gender: Female Disposition of : home Status at Discharge Cognitive/behavioral status at discharge: oriented Functional status at discharge: independent ambulation Overall status at discharge: patient is progressing back to baseline Time Spent with Patient Time attestation: Total time spent providing and/or coordinating discharge services: Time spent: Less than 30 minutes Objective Labs 11/17/22 06:26 Labs: Laboratory Results - last 24 hr 11/17/22 06:26 WBC 7.7 RBC 3.42 L Hgb 10.7 L Hct 31.5 L MCV 92.0 MCH 31.2 MCHC 33.9 RDW 13.5 Plt Count 215 Neut % (Auto) 77.3 H Lymph % (Auto) 14.4 L [place] % (Auto) 7.2 Eos % (Auto) 0.7 L Baso % (Auto) 0.4 Neut # (Auto) 6000 Lymph # (Auto) 1100 [place] # (Auto) 600 Eos # (Auto) 100 Baso # (Auto) 0 Exam Const General: cooperative and comfortable Nutritional Appearance: average body habitus Orientation: alert and oriented x3 HENMT Head: normal to inspection, atraumatic and abrasion Ears: hearing grossly normal bilaterally Face and sinus: face symmetric Eyes General: appearance normal, both eyes and all related structures Conjunctivae: conjunctivae normal Sclera: sclerae normal EOM: EOM intact bilaterally Neck Neck: normal visual inspection Resp Effort & Inspection: normal respiratory effort and able to speak in complete sentences GI Inspection: normal to inspection Palpation: soft and no hepatosplenomegaly External Female Exam: other (No significant bleeding noted) Extrem General: no calf tenderness Psych Appearance: grossly normal Mental Status: mental status grossly normal Speech and Movement: speech and movement normal Mood: congruent mood Affect: normal affect Attitude: cooperative Thought Process: normal Thought Content: normal Judgment: judgment good Discharge Plan Discharge Plan Patient Disposition: Home Provider Discharge Comment: Please review the written instructions you received when you were discharged from the hospital. Your follow-up appointment will be 6 weeks after your delivery and I look forward to seeing you. If however in meanwhile, issues, concerns, or questions, please contact me either through the office phone at [phone], or via the patient portal. Discharge orders & Medications Prescriptions: Continued prenat.vits,monie,[id number] Tablet 1 tab PO DAILY sertraline [Zoloft] 50 mg tablet 50 mg PO DAILY Qty: 30 12RF Rx Instructions: Take 1/2 tab daily x 10 days then 1 tab PO q d (DME) Double Electric Breast Pump See Rx Instructions .Route .MEDSUPPLY Qty: 1 0RF Rx Instructions: And supplies Follow up/Referrals: Sushil Sutherland MD [Primary Care Provider] - Arben Martinez MD [Physician] - (Your six week scheduled follow up appointment with Dr. Martinez is on December 21 @ 9:15 am.) Discharge Health Status Multidrug resistant organism: No MDRO Diet/Activity/Treatments Diet: Diet as Tolerated Activity: As tolerated Other treatments: Please review the written instructions you received when you were discharged from the hospital. Your follow-up appointment will be 6 weeks after your delivery and I look forward to seeing you. If however in meanwhile, issues, concerns, or questions, please contact me either through the office phone at [phone], or via the patient. Skin/Wound/Dressing Care Report to your healthcare provider any signs of infection, such as:: chills, fever, increased pain, unusual drainage and unusual redness Visit Report/Discharge Packet Instructions: DI for Labor and Delivery, Vaginal , DI for and Nipple Soreness Stand Alone Forms: Discharge: Care Discharge Data Primary Care Provider: Sushil Sutherland Discharges patient from system. Discharge Date/Time: 11/17/22 17:35
[2022-11-17 16:04] VITALS: BP 121/65; PULSE 66; RESP 16; TEMP 36.3
== END 2022-11-17 17:35 | disposition home or self-care (01) | DRG 560 ==
PROVIDERS: Admitting Provider Obstetrics & Gynecology; PCP Family Medicine; Referring Provider Obstetrics & Gynecology; Visit Provider Obstetrics & Gynecology
DX: O70.1 Second degree perineal laceration during delivery (principal); Z3A.39 39 weeks gestation of pregnancy; Z37.0 Single live birth
CPT/HCPCS: 36415; 59050; 59409; 85025; 86850; 86900; 86901; G0379; J2590

== ENCOUNTER 2023-01-07 06:47 | Day surgery (SDC) | payer OTHER, MEDICAID, SELFPAY ==
[2023-01-07] VITALS (7 sets, daily range): BP systolic 116–134; BP diastolic 67–91; PULSE 56–90; RESP 10–16; TEMP 36.3–36.6; O2SAT 94–99; BMI 24.3
--- NOTE | 2023-01-07 | PATH_ITS ---
[facility] [place] Accession Number: [id number] No. of containers..01 Tissue . 01 Material submitted: . fallopian tube - BILATERAL FALLOPIAN TUBES . 01 Diagnosis: Bilateral Fallopian Tubes: Longer fallopian tube, complete cross-section; negative for significant atypia. [place] fallopian tube, complete cross-section; negative for significant atypia. [facility] 01/14/2023 0947 Local . 01 Electronically signed: . Lia Hussein MD, Pathologist NPI- [id number] . 01 Gross description: . The specimen is received in formalin labeled with the patient's name, , and bilateral fallopian tubes, and consists of two unoriented, fimbriated fallopian tubes measuring 7.0 x 0.5 cm and 6.1 x 0.5 cm respectively. The longer fallopian tube has violaceous smooth serosa with no cystic structures identified, and sectioning reveals an unremarkable stellate lumen. The shorter fallopian tube has violaceous smooth serosa with no cystic structures identified and sectioning reveals an unremarkable stellate lumen. Hygiene Assistant sections to include one-half of bisected fimbriae and cross-sections are submitted as follows: A1: Longer fallopian tube. A2: [place]well fallopian tube. ([id number]) /[facility] 01/12/2023 0935 Local . 01 Pathologist provided ICD-10: Z30.2 . 01 CPT . 937589 Specimen Comment: A courtesy copy of this report has been sent to [phone] Performed at: 01 [facility] [address] [place] [address] Suite [facility], [place], [place] [id number] MD Piter Francois MD Phone: [phone]
[2023-01-07] MEDS: LACTATED RINGERS 1,000 ML 100 ML IV (07:23)
--- NOTE | 2023-01-07 07:28 | PM.PREOP ---
Pre-operative Note COVID-19 COVID-19 status: Not tested Criteria for continued procedure: Non-surgical alternatives not available or appropriate per current SOC Interval Note History & Physical reviewed/Exam performed by Physician: Yes Changes to H&P: No
--- NOTE | 2023-01-07 08:10 | SUR.OPER ---
Lithotomy on padded OR bed, head on pillow, arms secured on padded arm boards at <90 degrees abduction. Legs secured in padded yellow fins stirrups.
[2023-01-07] MEDS: BUPIVACAINE 0.5% (PF) 30 ML, EPINEPHrine 0.15 MG INJ (08:15)
--- NOTE | 2023-01-07 08:55 | PM.GYNOP.1 ---
Operative Date/Time/Diagnoses Date of procedure: 01/07/23 Time of procedure: 08:05 Pre-op diagnosis: Request for sterilization Post-op diagnosis: same Procedure & Clinicians Procedure: Procedures Operation Date: 01/07/23 07:45 Actual Procedure Side Surgeon p Laparoscopic Salpingectomy Bilateral Arben Martinez MD Indications: Yamile is a 27-year-old status post vaginal delivery in November 2022 who has requested elective sterilization via laparoscopic bilateral salpingectomy. Practice surgery the patient has been counseled this is a procedure which will result in her permanently and irreversibly being unable to bear children without benefit of assisted reproductive technology. With full understanding of the above she desires to proceed and is having her laparoscopic bilateral salpingectomy performed today. Surgeon: Arben Martinez Anesthesia Type: General Operative Notes Findings: Normal pelvis with small amount retrograde menses present in the anterior posterior cul-de-sac. Closure Type: primary Specimen(s): left tube and right tube Estimated blood loss (mL): 5 Blood products transfused: none Procedure in detail: With the patient under satisfactory general anesthesia in the modified dorsal lithotomy position, the perineum, vagina, and abdomen were prepped and draped for IUD removal and laparoscopic bilateral salpingectomy. A pre-surgical safety time-out was then taken in accordance with [facility] Main OR protocols. The umbilicus was then infiltrated with 0.5% Marcaine with epinephrine and 1 cm vertical incision was made in the inferior aspect of the umbilicus. Veress needle was used to insufflate the abdomen with carbon dioxide and once appropriately insufflated, 5 mm bladeless trocar and sleeve were inserted through the incision. Proper placement of the sleeve was confirmed with laparoscopic visualization and insufflation of the abdomen continued. A 2nd and 3rd 5 mm laparoscopic port were placed in the right and left mid quadrants using a similar technique and using a 3 puncture technique, the abdomen and pelvis were visualized with the findings as noted above. The distal aspect of the left fallopian tube was then grasped with a grasping forceps and using a Power Seal device, fimbria ovarica was coagulated and divided the dissection using the Power Seal continuing across the mesosalpinx to the cornua where the base fallopian tube was coagulated and divided. The left fallopian tube was then removed through one of the ports and submitted pathologic specimen. Attention was then turned to the right adnexa with distal tube grasped with a grasping forcep. The Power Seal device was then used to coagulate fimbria ovarica and the dissection was carried across the mesosalpinx to the cornua where the fallopian tube on the right side was amputated at the cornua following coagulation proximal tube the Power Seal device. Pelvis was inspected and there were no abnormalities noted following bilateral salpingectomy. The pneumoperitoneum was then vented and the ports removed from the abdominal wall. Port incisions were then closed with 4-0 Monocryl using inverted interrupted stitches and skin glue was applied. Appropriate dressings were then applied, patient was awakened, and transferred to the PACU for a period of observation after having tolerated the procedure well. Complications: none Post-operative Condition: stable Disposition: PACU Plan for aftercare: Routine postoperative care with postop follow-up scheduled for 2 weeks following her surgery
== END 2023-01-07 09:37 | disposition home or self-care (01) ==
PROVIDERS: PCP Family Medicine; Referring Provider Obstetrics & Gynecology; Visit Provider Obstetrics & Gynecology
PROC: 0UT74ZZ Resection of Bilateral Fallopian Tubes, Percutaneous Endoscopic Approach (ICD-10-PCS; CPT 58661; principal; 2023-01-07 07:45)
DX: Z30.2 Encounter for sterilization (principal)
CPT/HCPCS: 58661; J0171; J1100; J1885; J2250; J2405; J2704; J3010; J3490

== ENCOUNTER → 2023-11-05 08:37 | Outpatient (CLI) | payer OTHER, MEDICAID, SELFPAY ==
[2023-11-05 10:01] LABS: Add Manual Diff / Slide Review NO; Basophils Absolute Auto 0 /uL (0-100); Eosinophils Absolute Auto 100 /uL (0-450); Eosinophils Percent Auto 3.6 % (2-4); Hematocrit 37.9 % (36-46); Hemoglobin 12.5 g/dL (12.0-16.0); Lymphocytes Absolute Auto 1500 /uL (1100-4500); Lymphocytes Percent Auto 38.8 % (25-40); Mean Corpuscular Hemoglobin 30.5 PG (26-34); Mean Corpuscular Volume 92.6 fL (80-100); Monocytes Absolute Auto 300 /uL (0-900); Monocytes Percent Auto 7.1 % (3-14); Neutrophils Absolute Auto 1900 /uL (1500-7000); Neutrophils Percent Auto 49.5 % (50-75); Platelet Count 330 X10^3/uL (150-400); Red Blood Cell Count 4.09 X10^6/uL (4.0-5.2); Red Cell Distribution Width 14.1 % (11.6-14.8); White Blood Cell Count 3.9 X10^3/uL (4.5-11.0)
[2023-11-05 10:18] LABS: Alanine Aminotransferase 10 IU/L (<35); Albumin 4.5 g/dL (3.5-5.0); Albumin Globulin Ratio 1.8 (1.0-2.8); Alkaline Phosphatase 73 U/L (38-126); Aspartate Aminotransferase 21 IU/L (14-36); BUN Creatinine Ratio 18.2 (6-22); Bilirubin Total 0.8 mg/dL (0.2-1.3); Blood Urea Nitrogen 14 mg/dL (7-17); Calcium 8.6 mg/dL (8.4-10.2); Carbon Dioxide 28 mmol/L (22-32); Chloride 108 mmol/L (98-107); Cholesterol 170 mg/dL (140-199); Estimated Glomerular Filt Rate > 60 mL/min (>60); Globulin 2.5 g/dL (1.7-4.1); Glucose 84 mg/dL (70-100); HDL Cholesterol 61 mg/dL (40-60); HEMOLYSIS < 15 (0-50); LDL Cholesterol Calculated 101 mg/dL (<100); Potassium 3.9 mmol/L (3.4-5.1); Sodium 139 mmol/L (137-145); Triglycerides 38 mg/dL (35-150)
[2023-11-05 10:48] LABS: TSH w/ Reflex to FT4 0.61 uIU/mL (0.47-4.68)
[2023-11-06 08:44] LABS: Apolipoprotein B 75 mg/dL (<90)
== END ==
PROVIDERS: PCP Family Medicine; Referring Provider Family Medicine; Visit Provider Family Medicine
DX: R00.2 Palpitations (principal); F41.8 Other specified anxiety disorders
CPT/HCPCS: 36415; 80053; 80061; 82172; 84443; 85025

== ENCOUNTER → 2023-12-02 09:30 | Outpatient (CLI) | payer OTHER, MEDICAID, SELFPAY ==
[2023-12-02 12:09] LABS: COVID-19 CEPHEID 4-PLEX PCR Negative (Negative); Influenza A - CEPHEID Flu A NEGATIVE (NEGATIVE); Influenza B - CEPHEID Flu B NEGATIVE (NEGATIVE); Respiratory Syncytial Virus Negative (Negative)
== END ==
PROVIDERS: PCP Family Medicine; Visit Provider Nurse Practitioner Family
DX: R50.9 Fever, unspecified (principal); J02.9 Acute pharyngitis, unspecified
CPT/HCPCS: 87635; 87400 ×2; 87420; 0241U; 87070

== ENCOUNTER 2024-12-17 17:50 | Emergency (ER) | payer OTHER, SELFPAY ==
[2024-12-17 18:15] VITALS: BP 121/83; PULSE 73; RESP 16; TEMP 36.9; O2SAT 100; BMI 24.7
--- NOTE | 2024-12-17 18:20 | DI.RAD.S_ITS ---
PROCEDURE: XR FINGER RT MIN 2V INDICATIONS: injury/bruise/swelling TECHNIQUE: AP hand, 2 views of the 4th finger(s) acquired. COMPARISON: None. FINDINGS: Bones: Cortical irregularity involving volar aspect of 4th proximal phalangeal head and neck suggestive of slightly displaced oblique fracture in this area. No suspicious bony lesions. Soft tissues: No suspicious soft tissue calcifications. IMPRESSION: Finding is suggestive of slightly displaced oblique fracture involving 4th proximal phalangeal head and neck with surrounding soft tissue swelling. Dictated by: Arvind Amato M.D. on 12/17/2024 at 18:33 Approved by: Arvind Amato M.D. on 12/17/2024 at 18:35
--- NOTE | 2024-12-17 23:59 | ED.UPPEXIN ---
HPI - Extremity Injury (Upper) General Chief Complaint: Extremity Injury, Upper Stated Complaint: pcp ref , Rt hand injury Time Seen by Provider: 12/17/24 23:51 Source: patient Mode of arrival: Ambulatory History of Present Illness HPI narrative: 29-year-old right-handed female was reaching for something with her right hand, fell out of her bed, rolled her fingers as she fell out of her bed, bumped her right head. No loss of consciousness. No neck pain. No nausea or vomiting. Has pain persisting to her right 4th finger, and distal right 3rd finger. No pain or injury to the proximal right forearm, wrist, elbow, upper arm. Related Data Allergies Allergy/AdvReac Type Severity Reaction Status Date / Time latex (LATEX) Allergy Intermediate Rash Verified 12/17/24 18:15 amoxicillin Allergy rash Verified 12/17/24 18:15 Patient History Medical History (Updated 12/18/24 @ 00:07 by Stewart Crum MD) Palpitations Vertigo Tinnitus Tinnitus, left ear Sinusitis Vaginal delivery (~12/15/19) Closed arm fracture Surgical History (Updated 04/06/22 @ 11:00 by Yane López RN) [place] teeth extracted Family History (Updated 04/06/22 @ 11:01 by Yane López RN) Mother Hypertension Grandmother Congestive heart failure Social History marital status: unmarried,living together number of children: 3 household members: significant other and children lives independently: Yes housing: house pets and animals: Yes (1 dog, aware of toxo) education level: college occupational status: unemployed current occupational exposures/hazards: No special jake needs: No travel history: over 6 months ago seatbelt use: always water heater temp set < 120 deg: Yes working smoke detector in home: Yes fire extinguisher in home: Yes carbon monox detector in home: Yes firearms in home: No do you feel safe at home: Yes Smoking Status: Never smoker second hand exposure: No alcohol intake: never substance use type: does not use during the past year weight has: remained stable well-balanced diet: daily or most days daily servings fruits/ve-4 caffeine: Yes Type(s) of exercise: regular exercise and yoga frequency: 3-4 times per week Smoking Status: Never smoker Exam Narrative Exam Narrative: GENERAL: Well-developed patient, in mild distress. HEAD: Atraumatic. Normocephalic. EYES: Pupils equal round and reactive. Extraocular motions intact. No scleral icterus. No injection or drainage. ENT: Nose without bleeding, purulent drainage. Throat without erythema, tonsillar hypertrophy or exudate. Airway patent. No tenderness to the left zygoma, periorbital area, TMJ, has good jaw opening. No obvious oral dental injuries. No obvious scalp injuries. NECK: Trachea midline. Non tender CARDIOVASCULAR: Regular rate and rhythm without murmurs, gallops, or rubs. RESPIRATORY: Clear to auscultation. Breath sounds equal bilaterally. No wheezes, rales, or rhonchi. GASTROINTESTINAL: Abdomen soft, non-tender, nondistended. EXTREMITIES: Tenderness and bruising to the right 4th finger MCP, as well as along the right 4th finger. Small bruise fingertip 3rd finger, no subungual hematomas. No gross deformities. Tender remainder of hand and fingers. No tenderness proximal right upper extremity along wrist, forearm, elbow, upper arm, shoulder. BACK: Nontender without deformity or crepitance. No flank tenderness. NEURO: AOx3. SKIN: No rash or erythema of visible areas Initial Vital Signs Initial Vital Signs: Vital Signs Temperature 98.4 F 12/17/24 18:15 Pulse Rate 73 12/17/24 18:15 Respiratory Rate 16 12/17/24 18:15 Blood Pressure 121/83 12/17/24 18:15 Pulse Oximetry 100 12/17/24 18:15 Oxygen Delivery Method Room Air 12/17/24 18:15 Course Orders Ordered: ED Orders 12/17/24 18:20 XR finger RT min 2V Stat Vital Signs Vital signs: Vital Signs - 8 hr 12/18/24 00:29 Pulse Rate 74 Respiratory Rate 16 Blood Pressure 111/56 L Pulse Oximetry 98 Oxygen Delivery Method Room Air MDM - Extremity Injury (Upper) MDM Narrative Medical decision making narrative: 29-year-old female reaching for an object with her right hand fell out of bed with curling injury to her right 4th and 3rd finger, some bruising to the right MCP area with tenderness along the right 4th finger, some bruising to the tip of the right middle finger. No subungual hematomas. X-ray hand suspicious for oblique fracture at the head of the proximal phalanx right 4th finger. No dislocations. No other bony injuries. Placed ulnar gutter splint. 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 Take Tylenol [id number]-[id number] pain medications as needed. Follow up with Orthopedic surgery advised, clinic contact information provided. Discharge Plan Departure Patient Disposition: Home Clinical Impression: Finger fracture, right Activity Restrictions/Additional Instructions: Right 4th finger injury with bruising and tenderness MCP and along the finger. Also some slight bruising of the end of the right 3rd finger. X-rays suspicious for oblique fracture appearance at the head of the proximal phalanx of the 4th finger. Placed in ulnar gutter like splint. Advised wearing the splint until cleared by Orthopedic surgery. Slight bump to the left side of your head also, no significant injuries on examination. No advanced imaging required of facial bones or brain/skull. Advised use of makk-scn-fubmsaw ibuprofen and/or Tylenol as needed for pain control. Advised to keep splint in place, recheck in follow up with Orthopedic surgery. No use of right hand until cleared by Orthopedic surgery. Call their office during regular hours tomorrow for close follow up appointment. Referrals: Sushil Sutherland MD [Primary Care Provider, Family Practice] Clemencia Mckeon DO [Physician, Orthopedic Surgery] Stand Alone Forms: Patient Portal/API, Work Release Note
[2024-12-18 00:29] VITALS: BP 111/56; PULSE 74; RESP 16; O2SAT 98
== END 2024-12-18 00:30 | disposition home or self-care (01) ==
PROVIDERS: Emergency Provider Emergency Medicine; PCP Family Medicine
DX: S62.614A Displaced fracture of proximal phalanx of right ring finger, initial encounter for closed fracture (principal); W06.XXXA Fall from bed, initial encounter
CPT/HCPCS: 29125; 73140; 99282; 99283